=== PATIENT | male | born 1995 | race Caucasian/White ===

== ENCOUNTER 2019-02-15 07:03 | Emergency (ER) | payer SELFPAY ==
[~2019-02-15] VITALS: Ht 182.9 cm; Wt 77.1 kg
[2019-02-15 07:20] VITALS: BP 148/70
--- NOTE | 2019-02-15 07:41 | PHYS DOC ---
Past Medical History Past Medical History: No Pertinent History Past Surgical History: No Surgical History Smoking: Cigarettes Alcohol Use: Occasionally Drug Use: None Adult General Chief Complaint Chief Complaint: DENTAL PROBLEM HPI HPI 23 year old male presents with report of right lower molar pain which has been an issue off and on for the last several months. Reports pain worse since yesterday. Reports has not followed with a dentist due to lack of insurance. Denies fever/chills. Reports tobacco abuse. Review of Systems Review of Systems Constitutional: Denies fever or chills HENT: Denies nasal congestion or sore throat; reports dental pain Respiratory: Denies cough or shortness of breath Integument: Denies rash or skin lesions Neurologic: Denies headache, focal weakness or sensory changes Complete systems were reviewed and found to be within normal limits, except as documented in this note. Allergies Allergies Allergies Coded Allergies Type Severity Reaction Last Updated Verified No Known Drug Allergies 02/15/19 No Physical Exam Physical Exam Constitutional: Well developed, well nourished, uncomfortable, non-toxic appearance HENT: Normocephalic, atraumatic, oropharynx moist, poor dentition throughout, severe dental caries to molars bilaterally and both maxillary and mandibular, pain to palpation to right mandibular molars, no drainable fluctuance noted. Eyes: Conjunctiva normal, no discharge Neck: Normal range of motion, no tenderness, supple Cardiovascular: Heart rate normal, regular rhythm Lungs & Thorax: Bilateral breath sounds clear to auscultation, no wheezing Skin: Warm, dry, no erythema, no rash Extremities: No tenderness, ROM intact, no edema Neurologic: Alert and oriented X 3, no focal deficits noted Psychologic: Affect normal, judgement normal Current Patient Data Vital Signs Vital Signs Date Time Temp Pulse Resp B/P (MAP) Pulse Ox O2 Delivery O2 Flow Rate FiO2 02/15/19 07:20 97.6 99 18 148/70 (96) 98 Room Air 97.6 EKG EKG [] Radiology/Procedures Radiology/Procedures [] Course & Med Decision Making Course & Med Decision Making Patient presents with dental caries with report of dentalgia. NO drainable abscess noted. MSE performed. Patient offered course of treatment including dental block, pain medication, antibiotics and steroids. As self pay patient, per [employer] policy, patient required to pay a self pay co-pay. Patient elected to leave AMA as unable to pay co-pay at this time. Patient given list of PCP and dental clinics and advised to follow-up clinic. Patient acknowledges understanding and agreement with leaving AMA. Pranav Disclaimer Dragon Disclaimer This electronic medical record was generated, in whole or in part, using a voice recognition dictation system. Departure Departure Impression: Primary Impression: Dental caries Additional Impressions: Dentalgia Left against medical advice Disposition: 07 AGAINST MEDICAL ADVICE Condition: STABLE Referrals: NO PCP (PCP) Problem Qualifiers ABY DOZIER DO Feb 15, 2019 07:41
== END 2019-02-15 07:32 | disposition left against medical advice (07) ==
LOC: ER 07:03
DX: K02.9 Dental caries, unspecified (principal); K08.89 Other specified disorders of teeth and supporting structures; F17.210 Nicotine dependence, cigarettes, uncomplicated
CPT/HCPCS: 99281

== ENCOUNTER 2019-07-31 20:20 | Emergency (ER) | payer SELFPAY ==
[~2019-07-31] VITALS: Ht 182.9 cm; Wt 75.0 kg
[2019-07-31] MEDS ORDERED: HYDROmorphone 2 MG/ML VIAL ONE (20:46)
--- NOTE | 2019-07-31 20:48 | PHYS DOC ---
Past Medical History Past Medical History: No Pertinent History Past Surgical History: No Surgical History Smoking Status: Current Every Day Smoker Alcohol Use: Occasionally Drug Use: None General Adult EDM: Chief Complaint: UPPER EXTREMITY INJURY HPI: HPI: 23-year-old male who denies any significant past medical history presents to the ED with complaints of left elbow and left wrist pain (nondominant hand) after patient fell off his skateboard around 8 or 9 PM last night. Patient states he did not seek medical attention at that time and treated his pain with alcohol. Reports his vaccines are up-to-date including his tetanus. Was not influence of any alcohol or drugs at the time of his injury. Reports he did not hit his head. ROS: Denies associated fever, chills, headache, midline neck pain or stiffness, nausea, vomiting, chest pain, dyspnea, sore throat, cough, diaphoresis, back pain, saddle anesthesia, skin color changes or other concerning sxs. Review of Systems: Review of Systems: Constitutional: Denies fever or chills. [] Eyes: Denies change in visual acuity. [] HENT: Denies nasal congestion or sore throat. [] Respiratory: Denies cough or shortness of breath. [] Cardiovascular: Denies chest pain or edema. [] GI: Denies abdominal pain, nausea, vomiting, bloody stools or diarrhea. [] : Denies dysuria. [] Musculoskeletal: Denies back pain or joint pain. [] Integument: Denies rash. [] Neurologic: Denies headache, focal weakness or sensory changes. [] Endocrine: Denies polyuria or polydipsia. [] Lymphatic: Denies swollen glands. [] Psychiatric: Denies depression or anxiety. [] Allergies: Allergies: Allergies Coded Allergies Type Severity Reaction Last Updated Verified No Known Drug Allergies 02/15/19 No Physical Exam: PE: Constitutional: Well developed, well nourished, uncomfortable HENT: Normocephalic, atraumatic, bilateral external ears normal, oropharynx moist, no oral exudates, nose normal. [] Eyes: PERRLA, EOMI, conjunctiva normal, no discharge. [] Neck: Normal range of motion, no tenderness, supple, no stridor. [] Cardiovascular:Heart rate regular rhythm, no murmur [] Lungs & Thorax: Bilateral breath sounds clear to auscultation [] Abdomen: Bowel sounds normal, soft, no tenderness, no masses, no pulsatile masses. [] Skin: Warm, dry, no erythema, no rash. [] Back: No tenderness, no CVA tenderness. [] Extremities: No tenderness, no cyanosis, no clubbing, ROM intact, left dorsal wrist swelling and ecchymosis, olecranon/medial and lateral epicondyle tenderness to palpation (pt states "yes" to multiple sites of palpation), left distal humerus tenderness to palpation, no left shoulder pain, strong radial pulse on left, left radial/ulnar/median nerve sensation intact, abrasion < 1 cm over palm of hand (scabbed over) Neurologic: Alert and oriented X 3, normal motor function, normal sensory function, no focal deficits noted. [] Psychologic: Affect normal, judgement normal, mood normal. [] EKG: EKG: [] Radiology/Procedures: Radiology/Procedures: IMAGING REPORT Signed PATIENT: JACOBO TOLEDO ACCOUNT: [id number] : 1995 LOCATION: ER AGE: 23 SEX: M EXAM STATUS: REG ER ORD. PHYSICIAN: TORY LUONG DO REASON: fx PROCEDURE: ELBOW LEFT 3V Exam: Left humerus 2 views. Left elbow 3 views. Left forearm 2 views. Left wrist 3 views. Left hand 2 views INDICATION: Fracture TECHNIQUE: Frontal and lateral views the left humerus, left forearm, left hand. Frontal, lateral and oblique views of the left wrist and left elbow Comparisons: None FINDINGS: Humerus: Bone mineralization is normal. No acute or healed fractures. Soft tissues are unremarkable. Joint spaces are well-maintained. Elbow: Bone mineralization is normal. No acute or healed fractures. Soft tissues are unremarkable. Joint spaces are well-maintained. Forearm: Bone mineralization is normal. No acute or healed fractures. Soft tissues are unremarkable. Joint spaces are well-maintained. Wrist: There is a subtle linear lucency noted through the mid scaphoid. Bone mineralization is normal. Joint spaces are well-maintained. Soft tissues are unremarkable. Hand: Bone mineralization is normal. No acute or healed fractures. Soft tissues are unremarkable. Joint spaces are well-maintained. IMPRESSION: 1. Subtle linear lucency noted at the waist of the scaphoid, may represent nondisplaced fracture. Correlate with snuffbox tenderness 2. No acute osseous abnormality of the left hand. 3. No acute osseous abnormality of the left forearm. 4. No acute osseous abnormality of the left elbow 5. No acute osseous abnormality of the left humerus Electronically signed by: Deja Franco MD (07/31/2019 9:27 PM) [id number] DICTATED and SIGNED BY: DEJA FRANCO MD DATE: 07/31/192126 Pt informed of findings. Thumb splica splint applied by left extremity. The s plint is checked by myself, good/appropriate stabilization of the injury. Distal capillary refill normal and distal neurologic function intact. Impression: Concern for scaphoid fx in non dominant left hand. D/w Ortho, Dr. Soto. Pt will need to followup with hand surgery in the next week. Thumb spica splint aplied. Analgesia prescribed with instructinos on use. Strict return precautions for neuro deficits/severe pain/compartment syndrome or repeat injury. All pts' questions were answered and he was stable at time of discharge. Course & Med Decision Making: Course & Med Decision Making Pertinent Labs and Imaging studies reviewed. (See chart for details) [] Dragon Disclaimer: Dragon Disclaimer: This electronic medical record was generated, in whole or in part, using a voice recognition dictation system. Departure Departure Impression: Primary Impression: Scaphoid fracture, wrist, closed Disposition: 01 HOME, SELF-CARE Condition: STABLE Referrals: NO PCP (PCP) Hand surgery Dr. Kristina Puente [facility] [address] [place] [address], [address] [place] [address] Patient Instructions: Scaphoid Fracture, Wrist Additional Instructions: Dr. Mathew Leija [facility] [address] [place] [address] Scripts Hydrocodone/Apap 5-325 (NORCO 5-325 TABLET) 1 Each Tablet 1 TAB PO PRN Q6HRS PRN for PAIN for 3 Days, #12 TAB 0 Refills Prov: TORY LUONG DO 07/31/19 Justicifation of Admission Dx: Justifications for Admission: Justification of Admission Dx: N/A TORY LUONG DO Jul 31, 2019 20:48
[2019-07-31] MEDS ORDERED: ONDANSETRON PF 4 MG/2 ML VIAL. IVP ONE (21:15)
[2019-07-31] MEDS ORDERED: HYDROmorphone 2 MG/ML VIAL IV ONE (21:15)
--- NOTE | 2019-07-31 21:30 | RAD ---
Exam: Left humerus 2 views. Left elbow 3 views. Left forearm 2 views. Left wrist 3 views. Left hand 2 views INDICATION: Fracture TECHNIQUE: Frontal and lateral views the left humerus, left forearm, left hand. Frontal, lateral and oblique views of the left wrist and left elbow Comparisons: None FINDINGS: Humerus: Bone mineralization is normal. No acute or healed fractures. Soft tissues are unremarkable. Joint spaces are well-maintained. Elbow: Bone mineralization is normal. No acute or healed fractures. Soft tissues are unremarkable. Joint spaces are well-maintained. Forearm: Bone mineralization is normal. No acute or healed fractures. Soft tissues are unremarkable. Joint spaces are well-maintained. Wrist: There is a subtle linear lucency noted through the mid scaphoid. Bone mineralization is normal. Joint spaces are well-maintained. Soft tissues are unremarkable. Hand: Bone mineralization is normal. No acute or healed fractures. Soft tissues are unremarkable. Joint spaces are well-maintained. IMPRESSION: 1. Subtle linear lucency noted at the waist of the scaphoid, may represent nondisplaced fracture. Correlate with snuffbox tenderness 2. No acute osseous abnormality of the left hand. 3. No acute osseous abnormality of the left forearm. 4. No acute osseous abnormality of the left elbow 5. No acute osseous abnormality of the left humerus Electronically signed by: Deja Sanz MD (07/31/2019 9:27 PM) [id number]
[2019-07-31] MEDS ORDERED: HYDR-3164 PO (22:58)
[2019-07-31 23:23] VITALS: BP 129/80
== END 2019-07-31 23:32 | disposition home or self-care (01) ==
LOC: ER 20:20
DX: S92.252A Displaced fracture of navicular [scaphoid] of left foot, initial encounter for closed fracture (principal); M25.532 Pain in left wrist; M25.512 Pain in left shoulder; R60.0 Localized edema; F17.200 Nicotine dependence, unspecified, uncomplicated; V00.131A Fall from skateboard, initial encounter; Y93.89 Activity, other specified; Y92.89 Other specified places as the place of occurrence of the external cause; Y99.8 Other external cause status
CPT/HCPCS: 29125; 73060; 73080; 73090; 73110; 73120; 96374; 96375; 99285; J1170; J2405; A4565